=== PATIENT | female | born 1970 | race African-American/Black ===

== ENCOUNTER 2017-10-16 03:57 | Emergency (ER) | payer MEDICAID ==
[~2017-10-16] VITALS: Ht 167.6 cm; Wt 95.0 kg
[2017-10-16 06:30] VITALS: BP 115/72
== END 2017-10-16 07:15 | disposition home or self-care (01) ==
LOC: ER 03:57
DX: M54.5 Low back pain (principal); F17.200 Nicotine dependence, unspecified, uncomplicated
CPT/HCPCS: 81025; 99283

== ENCOUNTER 2020-11-07 09:35 | Inpatient (IN) | payer MEDICAID ==
[~2020-11-07] VITALS: Ht 167.6 cm; Wt 87.5 kg
[2020-11-07 11:36] LABS: BASOPHILS % 0.9 % (0.0-2.0); EOSINOPHILS % 0.4 % (0.0-5.0); LYMPHOCYTES % 32.6 % (20.0-50.0); MEAN CORPUSCULAR HEMOGLOBIN 14.5 pg (28.0-32.0); MEAN CORPUSCULAR VOLUME 56.3 fL (81.0-99.0); MEAN PLATELET VOLUME 8.4 fl (7.4-10.4); NEUTROPHILS % 55.1 % (40.0-76.0); PLATELET 732 x1000/uL (130-400); RED BLOOD CELL COUNT 2.82 mill/uL (4.2-5.4); RED CELL DISTRIBUTION WIDTH 30.4 % (11.6-14.6)
[2020-11-07 11:42] LABS: CHLORIDE 106 mEq/L (98-107)
[2020-11-07 11:44] LABS: HEMOGLOBIN. 4.1 g/dL (12.0-16.0)
[2020-11-07 11:45] LABS: HEMATOCRIT. 15.9 % (36.0-48.0)
[2020-11-07 11:51] LABS: CREATINE KINASE 14 IU/L (26-192)
[2020-11-07 12:53] LABS: PLATELET ESTIMATE MARKEDLY INCREASED
[2020-11-07] MEDS ORDERED: ACETAMINOPHEN 325MG TABLET PO PRN (18:00)
[2020-11-07] MEDS ORDERED: ONDANSETRON HCL 4MG/2ML INJ IV PRN (18:00)
[2020-11-08] VITALS (14 sets, daily range): BP systolic 91–109; BP diastolic 37–61
[2020-11-08 09:24] LABS: BASOPHILS % 0.7 % (0.0-2.0); EOSINOPHILS % 0.6 % (0.0-5.0); LYMPHOCYTES % 32.2 % (20.0-50.0); MEAN CORPUSCULAR HEMOGLOBIN 19.5 pg (28.0-32.0); MEAN CORPUSCULAR VOLUME 63.6 fL (81.0-99.0); MEAN PLATELET VOLUME 8.2 fl (7.4-10.4); MONOCYTES % 11.1 % (2.0-8.0); NEUTROPHILS % 55.4 % (40.0-76.0); PLATELET 521 x1000/uL (130-400); RED BLOOD CELL COUNT 3.12 mill/uL (4.2-5.4); RED CELL DISTRIBUTION WIDTH 35.9 % (11.6-14.6)
[2020-11-08 09:30] LABS: CHLORIDE 108 mEq/L (98-107)
[2020-11-08 09:32] LABS: HEMOGLOBIN. 6.1 g/dL (12.0-16.0)
[2020-11-08 09:33] LABS: HEMATOCRIT. 19.8 % (36.0-48.0)
[2020-11-08] MEDS: FERROUS SULFATE 325MG TABLET PO SCH ×2 (12:57→17:36)
[2020-11-08] MEDS ORDERED: FERR325T6 MT (16:34)
[2020-11-08] MEDS ORDERED: DOCU250C14 MT (16:34)
[2020-11-08] MEDS: DOCUSATE SODIUM 250MG CAPSULE PO SCH (17:36)
[2020-11-08 23:49] LABS: HEMATOCRIT 23.8 % (36.0-48.0); HEMOGLOBIN 7.6 g/dL (12.0-16.0)
[2020-11-09] VITALS: BP 97/44
[2020-11-09 04:00] VITALS: BP 109/61
[2020-11-09 08:00] VITALS: BP 110/56
[2020-11-09] MEDS: DOCUSATE SODIUM 250MG CAPSULE PO SCH (09:02)
[2020-11-09] MEDS: FERROUS SULFATE 325MG TABLET PO SCH (09:02)
[2020-11-09 10:54] VITALS: BP 110/56
== END 2020-11-09 11:15 | disposition home or self-care (01) | DRG 663 ==
LOC: ER 09:45 → EDBEDREQTM 14:04 → EDBEDREQ 14:04 → MICUSO 23:45 → 6EST 11-08 09:00
PROVIDERS: ADMIT Internal Medicine; ATTEND Internal Medicine
PROC: 30233N1 Transfusion of Nonautologous Red Blood Cells into Peripheral Vein, Percutaneous Approach (ICD-10-PCS; principal; 2020-11-07)
DX: D62 Acute posthemorrhagic anemia (principal); D25.9 Leiomyoma of uterus, unspecified; E66.9 Obesity, unspecified; N92.0 Excessive and frequent menstruation with regular cycle; Z68.31 Body mass index [BMI] 31.0-31.9, adult
CPT/HCPCS: 36415; 71045; 80048; 80053; 82550; 83880; 84484; 85014; 85018; 85025; 85379; 86850; 86900; 86920; 93005; 99285; J2405; P9016